=== PATIENT | male | born 1990 | race Caucasian/White ===

== ENCOUNTER 2018-06-19 10:16 | Emergency (ER) | payer OTHER ==
[~2018-06-19] VITALS: Ht 182.9 cm; Wt 109.1 kg
[~2018-06-19 10:16] MED LIST: GABA600T2; METH750T87
[2018-06-19 10:18] VITALS: BP 151/81
[2018-06-19] MEDS ORDERED: IBUPROFEN 200 MG TABLET ONE (10:43)
[2018-06-19] MEDS ORDERED: IBUPROFEN 200 MG TABLET PO ONE (11:00)
== END 2018-06-19 11:44 | disposition home or self-care (01) ==
LOC: ED 11:19
DX: S62.633A Displaced fracture of distal phalanx of left middle finger, initial encounter for closed fracture (principal); W54.0XXA Bitten by dog, initial encounter; Y93.89 Activity, other specified; Y99.8 Other external cause status; Y92.009 Unspecified place in unspecified non-institutional (private) residence as the place of occurrence of the external cause
CPT/HCPCS: 29130; 99284

== ENCOUNTER 2018-09-04 18:28 | Emergency (ER) | payer OTHER ==
[~2018-09-04] VITALS: Ht 182.9 cm; Wt 105.0 kg
[2018-09-04] MEDS ORDERED: ONDANSETRON ODT 4 MG ONE (18:41)
[2018-09-04] MEDS ORDERED: ONDANSETRON ODT 4 MG PO ONE (19:00)
[2018-09-04 19:53] VITALS: BP 128/87
== END 2018-09-04 19:55 | disposition home or self-care (01) ==
LOC: ED 19:30
DX: B34.9 Viral infection, unspecified (principal); G89.29 Other chronic pain; M54.9 Dorsalgia, unspecified
CPT/HCPCS: 99283; Q0162

== ENCOUNTER 2018-09-26 16:27 | Emergency (ER) | payer OTHER ==
[~2018-09-26] VITALS: Ht 182.9 cm; Wt 105.7 kg
[2018-09-26 16:34] VITALS: BP 144/86
--- NOTE | 2018-09-26 17:14 | NUR ---
PT CHART REVIEWED AND PLACED FOR RECHECK.
[2018-09-26] MEDS ORDERED: ONDANSETRON ODT 4 MG PO ONE (17:30)
[2018-09-26] MEDS ORDERED: KETOROLAC 30 MG/1 ML ONE (17:32)
[2018-09-26] MEDS ORDERED: HYDROcodone/APAP 5/325 TABLET ONE (17:32)
[2018-09-26] MEDS ORDERED: ONDANSETRON ODT 4 MG ONE (17:32)
[2018-09-26] MEDS ORDERED: CYCLOBENZAPRINE 10 MG TABLET ONE (17:32)
[2018-09-26] MEDS ORDERED: HYDROcodone/APAP 5/325 TABLET PO ONE (18:00)
[2018-09-26] MEDS ORDERED: CYCLOBENZAPRINE 10 MG TABLET PO ONE (18:00)
[2018-09-26] MEDS ORDERED: KETOROLAC 60 MG/2 ML IM ONE (18:00)
== END 2018-09-26 17:57 | disposition home or self-care (01) ==
LOC: ED 17:51
DX: S39.012A Strain of muscle, fascia and tendon of lower back, initial encounter (principal); M54.41 Lumbago with sciatica, right side; G89.29 Other chronic pain; X50.0XXA Overexertion from strenuous movement or load, initial encounter; Y93.89 Activity, other specified; Y92.69 Other specified industrial and construction area as the place of occurrence of the external cause; Y99.0 Civilian activity done for income or pay
CPT/HCPCS: 72110; 96372; 99284; J1885; Q0162

== ENCOUNTER 2019-10-01 05:51 | Inpatient (IN) | payer OTHER ==
[~2019-10-01] VITALS: Ht 180.3 cm; Wt 105.0 kg
[~2019-10-01 05:51] MED LIST changes: -GABA600T2; +GABA600T7
[2019-10-01] MEDS ORDERED: LACTATED RINGERS 1,000 ML IV SCH (06:12)
[2019-10-01 06:16] VITALS: BP 146/96
[2019-10-01] MEDS ORDERED: SERT50TA PO (06:24)
[2019-10-01] MEDS ORDERED: GABA400C PO (06:24)
[2019-10-01] MEDS ORDERED: BUPIVACAINE/PF 0.5% ONE (06:39)
[2019-10-01] MEDS ORDERED: BUPIVACAINE/PF 0.25% ONE (06:39)
[2019-10-01] MEDS ORDERED: EPINEPHRINE 1 MG/ML, 1ML ONE (06:39)
[2019-10-01] MEDS ORDERED: BACITRACIN 50,000 UNIT ONE (06:39)
[2019-10-01] MEDS ORDERED: THROMBIN (RECOMBINANT) 5,000 UNIT VIAL TP ONE (06:39)
[2019-10-01] MEDS ORDERED: BUPIVACAINE/PF-EPI 0.25% 1:200K ONE (06:51)
[2019-10-01] MEDS ORDERED: MIDAZOLAM 1 MG/ML, 2ML ONE (07:20)
[2019-10-01] MEDS ORDERED: FENTANYL PF 250 MCG/5ML ONE (07:20)
[2019-10-01] MEDS ORDERED: PROPOFOL 200 ML ONE (07:25)
[2019-10-01] MEDS ORDERED: GABAPENTIN 300 MG CAPSULE ONE ×3 (07:30→10:20)
[2019-10-01] MEDS ORDERED: ACETAMINOPHEN 500 MG TABLET ONE ×2 (07:30)
[2019-10-01] MEDS ORDERED: VANCOMYCIN 1,000 MG ONE (07:36)
[2019-10-01] MEDS ORDERED: ALBUTEROL SULFATE 2.5 MG/3 ML NPPB PRN (09:00)
[2019-10-01] MEDS ORDERED: OXYcodone 5 MG/5 ML ORAL.SOL UDC PO PRN (09:00)
[2019-10-01] MEDS ORDERED: PROMETHAZINE 25 MG/ML, 1ML IV PRN (09:00)
[2019-10-01] MEDS ORDERED: LABETALOL 5MG/ML, 20ML IV PRN (09:00)
[2019-10-01] MEDS ORDERED: hydrALAzine 20 MG/ML, 1ML IV PRN (09:00)
[2019-10-01] MEDS ORDERED: PROPOFOL 10 MG/ML, 20ML ONE (10:41)
[2019-10-01] MEDS ORDERED: GLYCOPYRROLATE 0.2MG/1ML, 5ML ONE (10:41)
[2019-10-01] MEDS ORDERED: CEFAZOLIN 1,000 MG ONE (10:41)
[2019-10-01] MEDS ORDERED: SUCCINYLCHOLINE 20 MG/ML, 10ML ONE (10:41)
[2019-10-01] MEDS ORDERED: ROCURONIUM 10MG/ML,5ML ONE (10:41)
[2019-10-01] MEDS ORDERED: ONDANSETRON 2MG/ML, 2ML ONE (10:41)
[2019-10-01] MEDS ORDERED: DEXAMETHASONE 4 MG/ML, 1ML ONE (10:41)
[2019-10-01] MEDS ORDERED: NEOSTIGMINE 1 MG/ML, 10ML ONE (10:41)
[2019-10-01] MEDS ORDERED: MEPERIDINE/PF 25MG/ML,1ML ONE ×2 (11:13→11:23)
[2019-10-01] MEDS ORDERED: OXYcodone 5 MG/5 ML ORAL.SOL UDC ONE (11:13)
[2019-10-01] MEDS: MEPERIDINE/PF 25MG/0.5ML IVPush PRN ×2 (11:15→11:25)
[2019-10-01] MEDS ORDERED: DIAZEPAM 5 MG/ML, 2ML ONE (11:32)
[2019-10-01] MEDS ORDERED: FENTANYL PF 100 MCG/2ML ONE (11:32)
[2019-10-01] MEDS: FENTANYL PF 100 MCG/2ML IV PRN ×2 (11:35→11:45)
[2019-10-01] MEDS: DIAZEPAM 5 MG/ML, 2ML IVPush PRN ×2 (11:36→11:55)
[2019-10-01] MEDS ORDERED: HYDROmorphone 1 MG/ML, 1ML INJ ONE ×2 (11:53→13:07)
[2019-10-01] MEDS: HYDROmorphone 1 MG/ML, 1ML INJ IVPush PRN ×2 (11:55→12:20)
[2019-10-01] MEDS ORDERED: HYDROmorphone PCA 30 MG/30 ML IV PRN (12:00)
[2019-10-01] MEDS ORDERED: CYCLOBENZAPRINE 10 MG TABLET ONE (12:41)
[2019-10-01] MEDS ORDERED: CYCLOBENZAPRINE 10 MG TABLET PO ONE (13:00)
[2019-10-01 13:50] VITALS: BP 130/71
[2019-10-01] MEDS ORDERED: HYDROcodone/APAP 10/325 MG TABLET PO PRN (14:30)
[2019-10-01] MEDS ORDERED: BISACODYL 10 MG SUPP PR PRN (14:30)
[2019-10-01] MEDS ORDERED: MEPERIDINE/PF 100 MG/ML IM PRN (14:30)
[2019-10-01] MEDS ORDERED: CYCLOBENZAPRINE 10 MG TABLET PO PRN (14:30)
[2019-10-01] MEDS ORDERED: ONDANSETRON 2MG/ML, 2ML IV PRN (14:30)
[2019-10-01] MEDS ORDERED: MAGNESIUM HYDROXIDE 8%, 30ML UDC PO PRN (14:30)
[2019-10-01] MEDS ORDERED: DIPHENHYDRAMINE 25 MG CAPSULE PO PRN (14:30)
[2019-10-01] MEDS ORDERED: PROMETHAZINE 25 MG/ML, 1ML IM PRN (14:30)
[2019-10-01] MEDS ORDERED: DIAZEPAM 5 MG TABLET PO PRN (14:30)
[2019-10-01] MEDS ORDERED: DIPHENHYDRAMINE 50 MG/ML, 1ML IVPush PRN (14:30)
[2019-10-01] MEDS ORDERED: DIAZEPAM 5 MG/ML, 2ML IV PRN (14:30)
[2019-10-01 15:31] VITALS: BP 120/69
[2019-10-01] MEDS: GABAPENTIN 400 MG CAPSULE PO SCH ×2 (16:37→20:54)
[2019-10-01] MEDS: NS + 20MEQ KCL 1,000 ML IV SCH (16:37)
[2019-10-01] MEDS: CEFAZOLIN PMX 1GM/50ML 50 ML IVPB SCH (16:37)
[2019-10-01 19:27] VITALS: BP 115/69
[2019-10-02] MEDS: CEFAZOLIN PMX 1GM/50ML 50 ML IVPB SCH (00:25)
[2019-10-02 00:30] VITALS: BP 114/67
[2019-10-02] MEDS: NS + 20MEQ KCL 1,000 ML IV SCH ×3 (03:17→22:30)
[2019-10-02 04:25] VITALS: BP 125/64
[2019-10-02 06:01] LABS: BASOPHILS # (AUTO) 0.05 x10^3/uL (0-0.1); BASOPHILS % (AUTO) 0 % (0-1); EOSINOPHILS # (AUTO) 0.03 x10^3/uL (0-0.4); EOSINOPHILS % (AUTO) 0 % (1-7); LYMPHOCYTES # (AUTO) 2.41 x10^3/uL (1-3.4); LYMPHOCYTES % (AUTO) 22 % (22-44); MD NO; MEAN CORPUSCULAR HEMOGLOBIN 30.9 pg (27.5-34.5); MEAN CORPUSCULAR HGB CONC 33.4 g/dL (33.2-36.2); MEAN CORPUSCULAR VOLUME 92.6 fL (81-97); MEAN PLATELET VOLUME 7.6 fL (7.4-10.4); MONOCYTES # (AUTO) 1.15 x10^3/uL (0.2-0.8); MONOCYTES % (AUTO) 11 % (2-9); NEUTROPHILS % (AUTO) 67 % (42-75); PLATELET COUNT 247 x10^3/uL (130-400); RED CELL DISTRIBUTION WIDTH 14.2 % (9.4-14.8)
[2019-10-02 06:12] LABS: ANION GAP 3 mmol/L (5-15); CALCIUM 8.2 mg/dL (8.5-10.1); CHLORIDE 107 mmol/L (98-107); CREATININE 1.01 mg/dL (0.7-1.3)
[2019-10-02 07:50] VITALS: BP 105/60
[2019-10-02] MEDS: SENNA/DOCUSATE TABLET PO SCH (09:16)
[2019-10-02] MEDS: SERTRALINE 50MG TABLET PO SCH (09:16)
[2019-10-02] MEDS: GABAPENTIN 400 MG CAPSULE PO SCH ×3 (09:16→20:13)
[2019-10-02] MEDS: OXYcodone/APAP 10/325MG TABLET PO PRN ×3 (12:00→20:13)
[2019-10-02 15:57] VITALS: BP 109/71
[2019-10-02] MEDS: morphine SULFATE 10 MG/ML, 1ML IV PRN (18:51)
[2019-10-02 19:17] VITALS: BP 109/66
[2019-10-03] MEDS: OXYcodone/APAP 10/325MG TABLET PO PRN ×3 (00:43→09:01)
[2019-10-03 01:00] VITALS: BP 107/69
[2019-10-03] MEDS: morphine SULFATE 10 MG/ML, 1ML IV PRN (06:18)
[2019-10-03 07:23] LABS: BASOPHILS # (AUTO) 0.03 x10^3/uL (0-0.1); BASOPHILS % (AUTO) 0 % (0-1); EOSINOPHILS # (AUTO) 0.09 x10^3/uL (0-0.4); EOSINOPHILS % (AUTO) 1 % (1-7); LYMPHOCYTES # (AUTO) 1.74 x10^3/uL (1-3.4); LYMPHOCYTES % (AUTO) 15 % (22-44); MD NO; MEAN CORPUSCULAR HEMOGLOBIN 31.7 pg (27.5-34.5); MEAN CORPUSCULAR VOLUME 93.3 fL (81-97); MEAN PLATELET VOLUME 7.1 fL (7.4-10.4); MONOCYTES # (AUTO) 1.14 x10^3/uL (0.2-0.8); MONOCYTES % (AUTO) 10 % (2-9); NEUTROPHILS # (AUTO) 8.92 x10^3/uL (1.8-6.8); NEUTROPHILS % (AUTO) 75 % (42-75); PLATELET COUNT 278 x10^3/uL (130-400); RED BLOOD COUNT 4.15 x10^6/uL (4.38-5.82); RED CELL DISTRIBUTION WIDTH 14.1 % (9.4-14.8)
[2019-10-03 07:33] LABS: ANION GAP 7 mmol/L (5-15); CALCIUM 8.5 mg/dL (8.5-10.1); CHLORIDE 107 mmol/L (98-107)
[2019-10-03 07:34] LABS: CREATININE 0.77 mg/dL (0.7-1.3)
[2019-10-03 08:00] VITALS: BP 112/72
[2019-10-03] MEDS: NS + 20MEQ KCL 1,000 ML IV SCH (08:30)
[2019-10-03] MEDS ORDERED: CYCL-259 PO (08:54)
[2019-10-03] MEDS ORDERED: OXYC-302 PO (08:54)
[2019-10-03] MEDS: GABAPENTIN 400 MG CAPSULE PO SCH (09:01)
[2019-10-03] MEDS: SENNA/DOCUSATE TABLET PO SCH (09:01)
[2019-10-03] MEDS: SERTRALINE 50MG TABLET PO SCH (09:01)
== END 2019-10-03 13:00 | disposition home or self-care (01) | DRG 460 ==
LOC: ORIP 05:51 → 4NE 13:43
PROVIDERS: ADMIT Neurological Surgery; ATTEND Neurological Surgery
PROC: 0SG3071 Fusion of Lumbosacral Joint with Autologous Tissue Substitute, Posterior Approach, Posterior Column, Open Approach (ICD-10-PCS; 2019-10-01)
PROC: 0SP004Z Removal of Internal Fixation Device from Lumbar Vertebral Joint, Open Approach (ICD-10-PCS; 2019-10-01)
PROC: 3E0U0GB Introduction of Recombinant Bone Morphogenetic Protein into Joints, Open Approach (ICD-10-PCS; 2019-10-01)
PROC: 4A11X4G Monitoring of Peripheral Nervous Electrical Activity, Intraoperative, External Approach (ICD-10-PCS; 2019-10-01)
PROC: 01NB0ZZ Release Lumbar Nerve, Open Approach (ICD-10-PCS; principal; 2019-10-01 07:30)
DX: M96.0 Pseudarthrosis after fusion or arthrodesis (principal); G62.9 Polyneuropathy, unspecified; M51.16 Intervertebral disc disorders with radiculopathy, lumbar region
CPT/HCPCS: 36415; 72100; 80048; 85025; 95938; 95941; C1713; G0378; J0171; J0690; J1100; J1170; J2175; J2250; J2405; J2704; J2710; J3010; J3360; J3370; J3480; J3490; C1762; J0330; J2270; J7120